=== PATIENT | male | born 1975 | race Caucasian/White ===

== ENCOUNTER 2019-04-19 20:21 | Inpatient (IN) | payer OTHER ==
[~2019-04-19] VITALS: Ht 177.8 cm; Wt 155.6 kg
[2019-04-19 20:56] VITALS: BP_SYST 161
[2019-04-19] MEDS ORDERED: LOSA50TA3 PO (21:05)
[2019-04-19] MEDS ORDERED: METF1000 PO (21:05)
[2019-04-19 22:35] LABS: BASOPHILS # (AUTO) 0.2 K/uL (0.0-0.2); BASOPHILS % (AUTO) 2.2 % (0.0-2.0); EOSINOPHILS # (AUTO) 0.1 K/uL (0.0-0.4); EOSINOPHILS % (AUTO) 0.6 % (0.0-4.0); HEMATOCRIT 44.2 % (36-54); HEMOGLOBIN 15.1 g/dL (14.0-18.0); LYMPHOCYTES # (AUTO) 2.4 K/uL (1.0-5.5); LYMPHOCYTES % (AUTO) 22.5 % (20.5-51.5); MEAN CORPUSCULAR HEMOGLOBIN 29 pg (27-31); MEAN CORPUSCULAR HGB CONC 34 % (32-36); MEAN CORPUSCULAR VOLUME 85 fL (79.0-98.0); MONOCYTES # (AUTO) 0.6 K/uL (0.0-1.0); MONOCYTES % (AUTO) 5.5 % (1.7-9.3); NEUTROPHILS # (AUTO) 7.4 K/uL (1.8-7.7); NEUTROPHILS % (AUTO) 69.2 % (40.0-70.0); PLATELET COUNT (AUTO) 242 K/uL (130-430); RED BLOOD CELL COUNT(AUTO) 5.23 MIL/uL (4.2-6.2); RED CELL DISTRIBUTION WIDTH 14.2 % (9.0-15.0); WHITE BLOOD COUNT (AUTO) 10.7 K/uL (4.8-10.8)
[2019-04-19 22:50] LABS: CALCIUM 8.9 mg/dL (8.4-11.0); CREATININE 0.61 mg/dL (0.55-1.30); POTASSIUM 3.9 mmol/L (3.5-5.1)
[2019-04-20] MEDS ORDERED: ASPIRIN 325 MG TABLET PO ONE
[2019-04-20 02:51] VITALS: BP_SYST 148
[2019-04-20 08:00] VITALS: BP_SYST 128
[2019-04-20 11:14] VITALS: BP_SYST 122
[2019-04-20] MEDS ORDERED: LORazepam 2 MG/ML VIAL IVP PRN (12:15)
[2019-04-20] MEDS ORDERED: HYDROcodone/ACETAMIN 5-325 MG TAB (NORCO/ VICODIN) PO PRN (12:15)
[2019-04-20] MEDS ORDERED: ONDANSETRON HCL 4 MG/2 ML VIAL IVP PRN (12:15)
[2019-04-20] MEDS ORDERED: PIOGLITAZONE HCL 30 MG TABLET PO ONE (12:15)
[2019-04-20] MEDS ORDERED: LOSARTAN POTASSIUM 50 MG TABLET (COZAAR) PO ONE (12:15)
[2019-04-20] MEDS ORDERED: ACETAMINOPHEN 325 MG TABLET PO PRN (12:15)
[2019-04-20] MEDS ORDERED: HYDROcodone/ACETAMIN 10-325 MG TAB PO PRN (12:15)
[2019-04-20] MEDS: NORMAL SALINE 5 ML DISP.SYRIN IVF SCH ×2 (14:00→22:27)
[2019-04-20] MEDS ORDERED: PIOGLITAZONE HCL 15 MG TABLET ONE (15:12)
[2019-04-20 15:40] VITALS: BP_SYST 152
[2019-04-20 16:00] VITALS: BP_SYST 144
[2019-04-20] MEDS: metFORMIN HCL 500 MG TABLET PO SCH ×2 (18:45→22:35)
[2019-04-20 20:15] VITALS: BP_SYST 110
[2019-04-21 00:15] VITALS: BP_SYST 132
[2019-04-21] MEDS: NORMAL SALINE 5 ML DISP.SYRIN IVF SCH (06:03)
[2019-04-21] MEDS: INSULIN REGULAR, HUMAN 100 UNITS/ML, 10 ML VIAL (humuLIN R) SUBCUT PRN ×2 (06:04→11:18)
[2019-04-21 08:09] VITALS: BP_SYST 129
[2019-04-21 09:00] LABS: BASOPHILS # (AUTO) 0.1 K/uL (0.0-0.2); BASOPHILS % (AUTO) 0.5 % (0.0-2.0); EOSINOPHILS # (AUTO) 0.2 K/uL (0.0-0.4); EOSINOPHILS % (AUTO) 1.7 % (0.0-4.0); LYMPHOCYTES # (AUTO) 3.3 K/uL (1.0-5.5); LYMPHOCYTES % (AUTO) 29.3 % (20.5-51.5); MEAN CORPUSCULAR HEMOGLOBIN 29 pg (27-31); MEAN CORPUSCULAR HGB CONC 33 % (32-36); MEAN CORPUSCULAR VOLUME 86 fL (79.0-98.0); MONOCYTES # (AUTO) 0.9 K/uL (0.0-1.0); MONOCYTES % (AUTO) 7.8 % (1.7-9.3); NEUTROPHILS # (AUTO) 6.9 K/uL (1.8-7.7); NEUTROPHILS % (AUTO) 60.7 % (40.0-70.0); PLATELET COUNT (AUTO) 235 K/uL (130-430); RED CELL DISTRIBUTION WIDTH 13.7 % (9.0-15.0); WHITE BLOOD COUNT (AUTO) 11.3 K/uL (4.8-10.8)
[2019-04-21] MEDS ORDERED: LOSARTAN POTASSIUM 50 MG TABLET (COZAAR) PO SCH (09:00)
[2019-04-21] MEDS ORDERED: PIOGLITAZONE HCL 15 MG TABLET PO SCH (09:00)
[2019-04-21 09:01] LABS: CALCIUM 8.1 mg/dL (8.4-11.0); CREATININE 0.67 mg/dL (0.55-1.30); PHOSPHORUS 3.4 mg/dL (2.7-4.5); POTASSIUM 3.7 mmol/L (3.5-5.1)
[2019-04-21] MEDS ORDERED: D5W 1,000 ML IV PRN (10:45)
[2019-04-21] MEDS ORDERED: GLUCOSE 15 GM GEL (in 37.5 GM TUBE) PO PRN (10:45)
[2019-04-21] MEDS ORDERED: DEXTROSE 50%-WATER 50 ML DISP.SYRIN IVP PRN (10:45)
[2019-04-21 11:05] VITALS: BP_SYST 132
[2019-04-21] MEDS ORDERED: PIOG15TA8 PO (11:23)
[2019-04-21] MEDS ORDERED: NOR10 PO (11:23)
[2019-04-21] MEDS ORDERED: METO25TA6 PO (11:23)
[2019-04-21 11:48] VITALS: BP_SYST 148
== END 2019-04-21 12:30 | disposition home or self-care (01) | DRG 392 ==
LOC: SED 20:21 → STU 04-20 02:00
PROVIDERS: ADMIT Preventive Medicine Preventive Medicine/Occupational Environmental Medicine; ATTEND Preventive Medicine Preventive Medicine/Occupational Environmental Medicine
DX: K21.9 Gastro-esophageal reflux disease without esophagitis (principal); E11.65 Type 2 diabetes mellitus with hyperglycemia; I10 Essential (primary) hypertension; Z83.3 Family history of diabetes mellitus; Z79.899 Other long term (current) drug therapy; Z88.1 Allergy status to other antibiotic agents
CPT/HCPCS: 36415; 71045; 80048; 82962; 83735-TC; 83880; 84100-TC; 84484; 85025; 85379; 93005; 93017; 93306; 99285; G0378; J1815